=== PATIENT | female | born 1990 | race Caucasian/White ===

== ENCOUNTER 2023-03-13 21:56 | Emergency (ER) | payer SELFPAY ==
[~2023-03-13] VITALS: Ht 172.7 cm; Wt 112.0 kg
[2023-03-13] MEDS ORDERED: LORAZEPAM INJ 2 MG/ML VIAL ONE ×2 (22:21→22:47)
[2023-03-13 22:30] LABS: BASOPHILS # (AUTO) 0.1 K/uL (0.0-0.2); BASOPHILS % (AUTO) 0.6 % (0.0-2.0); EOSINOPHILS # (AUTO) 0.6 K/uL (0.0-0.7); EOSINOPHILS % (AUTO) 4.2 % (0.0-6.0); HEMATOCRIT 45 % (33-45); HEMOGLOBIN 14.1 g/dL (11.5-14.8); LYMPHOCYTES # (AUTO) 5.4 K/uL (0.8-4.8); LYMPHOCYTES % (AUTO) 38.7 % (20.0-44.0); MEAN CORPUSCULAR HEMOGLOBIN 30 PG (26.0-33.0); MEAN CORPUSCULAR HGB CONC 32 g/dl (31.0-36.0); MEAN CORPUSCULAR VOLUME 96 fL (82-100); MONOCYTES # (AUTO) 0.9 K/uL (0.1-1.30); MONOCYTES % (AUTO) 6.2 % (2.0-12.0); NEUTROPHILS % (AUTO) 50.3 % (43.0-81.0); PLATELET COUNT (AUTO) 310 K/uL (150-450); RED BLOOD CELL COUNT(AUTO) 4.66 MIL/uL (4.0-5.2); RED CELL DISTRIBUTION WIDTH 15.1 % (11.5-15.0); WHITE BLOOD COUNT (AUTO) 13.9 K/uL (4.3-11.0)
[2023-03-13] MEDS ORDERED: LORAZEPAM INJ 2 MG/ML VIAL IV ONE ×2 (22:30→23:00)
[2023-03-13 22:47] LABS: ALANINE AMINOTRANSFERASE 107 U/L (12-78); ALCOHOL, BLOOD < 3 mg/dL (0-10); ALKALINE PHOSPHATASE 88 U/L (46-116); ASPARTATE AMINOTRANSFERASE 72 U/L (15-37); BILIRUBIN,DIRECT 0.1 mg/dL (0.0-0.2); BILIRUBIN,TOTAL 0.3 mg/dL (0.2-1.0); CARBON DIOXIDE 14 mmol/L (21-32); CHLORIDE 100 mmol/L (98-107); CREATININE 1.3 mg/dL (0.6-1.3); GLUCOSE 180 mg/dL (74-106); POTASSIUM 3.3 mmol/L (3.5-5.1); SALICYLATE 0.7 mg/dL (2.8-20.0); SODIUM SERUM 137 mmol/L (136-145); TOTAL PROTEIN, SERUM 8.8 g/dL (6.4-8.2); UREA NITROGEN, BLOOD 8 mg/dL (7-18)
[2023-03-13 22:48] LABS: ACETAMINOPHEN 0 ug/ml (10-30); ALBUMIN < 0.6 g/dL (3.4-5.0)
[2023-03-13 23:00] LABS: APPEARANCE,URINE CLEAR (CLEAR); BILIRUBIN,URINE NEGATIVE (NEGATIVE); BLOOD, URINE 2+ Ery/uL (NEGATIVE); COLOR,URINE YELLOW (YELLOW); KETONES,URINE NEGATIVE (NEGATIVE); LEUKOCYTE ESTERASE ,URINE TRACE (NEGATIVE); NITRITE, URINE NEGATIVE (NEGATIVE); PROTEIN,URINE 2+ mg/dl (NEGATIVE); UGLUCOSE NEGATIVE (NEGATIVE); UROBILINOGEN,URINE 0.2 EU/dL (0.2)
[2023-03-13] MEDS ORDERED: HALOPERIDOL LACTATE INJ 5 MG/ML VIAL ONE (23:03)
[2023-03-13 23:11] LABS: ADD URINE CULTURE YES; BACTERIA,URINE Few /HPF (None Seen); HYALINE CASTS, URINE Few /LPF (None Seen); TRICHOMONAS,URINE Few /HPF (None Seen)
[2023-03-13 23:12] LABS: FINE GRANULAR CASTS,URINE Few /LPF (None Seen)
[2023-03-13 23:13] LABS: AMPHETAMINE, URINE NEGATIVE (NEGATIVE); BARBITURATE, URINE NEGATIVE (NEGATIVE); COCCAINE, URINE NEGATIVE (NEGATIVE); OPIATE, URINE NEGATIVE (NEGATIVE); PHENCYCLIDINE SCREEN,URINE NEGATIVE (NEGATIVE)
[2023-03-13 23:19] LABS: BENZODIAZEPINE, URINE POSITIVE (NEGATIVE)
[2023-03-13 23:20] LABS: CANNABINOID, URINE POSITIVE (NEGATIVE)
[2023-03-13] MEDS ORDERED: diphenhydrAMINE HCL 50 MG/ML VIAL ONE (23:24)
[2023-03-13] MEDS ORDERED: diphenhydrAMINE HCL 50 MG/ML VIAL IV ONE (23:30)
[2023-03-13] MEDS ORDERED: HALOPERIDOL LACTATE INJ 5 MG/ML VIAL IM ONE (23:30)
[2023-03-14] MEDS ORDERED: LORAZEPAM INJ 2 MG/ML VIAL ONE (00:30)
[2023-03-14] MEDS ORDERED: LORAZEPAM INJ 2 MG/ML VIAL IV ONE (00:30)
[2023-03-14] MEDS ORDERED: diphenhydrAMINE HCL 50 MG/ML VIAL IV ONE (00:30)
[2023-03-14] MEDS ORDERED: IV NS 0.9% 1,000 ML BAG IV ONE (01:30)
[2023-03-14] MEDS ORDERED: CEPHALEXIN MONOHYDRATE 500 MG CAPSULE PO ONE ×2 (08:40→09:00)
[2023-03-14] MEDS ORDERED: METRONIDAZOLE 250 MG TABLET ONE (08:40)
[2023-03-14] MEDS ORDERED: METR500T PO (08:43)
[2023-03-14] MEDS ORDERED: CEPH500C2 PO (08:43)
[2023-03-14 08:59] VITALS: BP 131/77; O2SAT 96
[2023-03-14] MEDS ORDERED: METRONIDAZOLE 500 MG TABLET PO ONE ×2 (09:00)
== END 2023-03-14 08:59 | disposition home or self-care (01) ==
LOC: ER 22:00
DX: R45.1 Restlessness and agitation (principal); T50.901A Poisoning by unspecified drugs, medicaments and biological substances, accidental (unintentional), initial encounter; M62.82 Rhabdomyolysis; F19.10 Other psychoactive substance abuse, uncomplicated; Y92.89 Other specified places as the place of occurrence of the external cause
CPT/HCPCS: 99284; 96372; 96374; 96375; 93005; 85025; 80048; 87086; 80076; 81001; 36415 ×2; 82962; 80143; 80320; 80307; 96361; 96376; 82550; 82553; J2060 ×3; J1200; J1630; J7030; G0480